=== PATIENT | female | born 1995 | race Caucasian/White ===

== ENCOUNTER 2020-06-22 21:10 | Emergency (ER) | payer OTHER ==
[~2020-06-22] VITALS: Ht 165.1 cm; Wt 60.2 kg
--- NOTE | 2020-06-22 22:12 | REPVR ---
PROCEDURE INFORMATION: Exam: US First Trimester, Transabdominal Exam date and time: 06/22/2020 10:04 PM Age: 25 years old Clinical indication: Lmp or gestational age (in weeks): 03/28/2020; Other: Vaginal bleeding; TECHNIQUE: Imaging protocol: Real-time transabdominal obstetrical ultrasound of the maternal pelvis and a first trimester , less than 14 weeks 0 days, with image documentation. COMPARISON: No relevant prior studies available. FINDINGS: Gestation: Single gestational sac demonstrated in the uterus. Single fetus demonstrated within the gestational sac with a crown-rump length measuring 7.2 cm. This corresponds to 13 weeks 2 days. Active motion demonstrated. Embryonic/ heart rate: heart rate is 155 bpm. Placenta: Unremarkable. No subchorionic bleed. Amniotic fluid: Amniotic fluid is normal for gestational age. BIOMETRY: Gestational age (AUA): Gestational age based on LMP of 03/28/2020 is 12 weeks 2 days. MATERNAL: Uterus: Unremarkable. Cervix: Unremarkable. Right adnexa: Unremarkable. Left adnexa: Unremarkable. Intraperitoneal space: No intraperitoneal free fluid. IMPRESSION: Unremarkable scan at 13 weeks 2 days using ultrasound measurements of the crown-rump length versus 12 weeks 2 days based on LMP. No abnormalities demonstrated. Electronically signed by: James Kenny On 06/22/2020 22:12:35 PM
[2020-06-22 22:44] LABS: BASO # 0.1 10^3/uL (0.0-0.2); BASO % 0.5 % (0.0-1.0); EOS # 0.2 10^3/uL (0.0-0.5); EOS % 1.7 % (0.0-3.0); HEMATOCRIT 36.4 % (36.0-47.0); HEMOGLOBIN 12.5 g/dl (12.0-15.5); LYMPH # 1.5 10^3/uL (1.5-5.0); LYMPH % 13.4 % (24.0-44.0); MEAN CORPUSCULAR HEMOGLOBIN 30.5 pg (27.0-33.0); MEAN CORPUSCULAR HGB CONC 34.3 g/dl (32.0-36.5); MEAN CORPUSCULAR VOLUME 88.8 fl (80.0-96.0); MONO # 0.6 10^3/uL (0.0-0.8); MONO % 5.3 % (0.0-5.0); NEUTROPHILS # 8.7 10^3/uL (1.5-8.5); NEUTROPHILS % 78.6 % (36.0-66.0); PLATELET COUNT, AUTOMATED 199 10^3/uL (150-450)
[2020-06-22 22:47] LABS: APPEARANCE, URINE CLEAR (CLEAR); BACTERIA, URINE AUTO 2+ (NEGATIVE); BILIRUBIN, URINE AUTO NEGATIVE (NEGATIVE); BLOOD, URINE BLOOD 3+ (NEGATIVE); COLOR, URINE STRAW (YELLOW); GLUCOSE, URINE (UA) AUTO NEGATIVE (NEGATIVE); KETONE, URINE AUTO NEGATIVE (NEGATIVE); LEUKOCYTE ESTERASE, URINE AUTO NEGATIVE (NEGATIVE); NITRITE, URINE AUTO NEGATIVE (NEGATIVE); PROTEIN, URINE AUTO NEGATIVE (NEGATIVE); RBC, URINE AUTO 47 /HPF (0-3); SPECIFIC GRAVITY URINE AUTO 1.002 (1.002-1.035); SQUAMOUS EPITHELIAL CELL UR AU 0 /HPF (0-6); UROBILINOGEN, URINE AUTO 0.2 mg/dL (0.0-2.0); WBC, URINE AUTO 7 /HPF (0-3)
[2020-06-23] MEDS ORDERED: RHOGAM 300 MCG (1500 IU) INJ (J2790) IM ONE (00:45)
[2020-06-23 02:09] VITALS: BP 109/65
== END 2020-06-23 02:23 | disposition home or self-care (01) ==
LOC: M ED 21:10
DX: O20.9 Hemorrhage in early pregnancy, unspecified (principal); Z3A.12 12 weeks gestation of pregnancy
CPT/HCPCS: 76801; 81001; 84702; 85025; 86850; 86900; 86901; 87086; 96372; 99284; J2790

== ENCOUNTER → 2020-08-02 | Outpatient (CLI) | payer OTHER ==
--- NOTE | 2020-08-08 11:10 | REP ---
OBSTETRIC SONOGRAPHY HISTORY: Supervision of for anatomy. FINDINGS: Scanning through the gravid uterus demonstrates a single living intrauterine gestation in a variable lie. The placenta is posterior and grade 0 without evidence of previa. Three vessel umbilical cord is seen. Amniotic fluid is subjectively normal. heart rate is recorded at 158 beats per minute. Closed cervical length is 3.4 cm measured transabdominally. There is a 1.5 cm corpus luteum cyst in the maternal right ovary. The inferior tip of the posterior placenta is measured 2.4 cm from the internal cervical os on transvaginal imaging. No anomaly is seen. The following anatomic structures are identified and felt to be unremarkable: cranium and intracranial anatomy, nuchal fold, face and profile, nose and lips, four chamber heart with left and right ventricular outflow tract views, diaphragm, left-sided stomach, right and left kidney, urinary bladder, spine, upper and lower extremities, three vessel cord. BIOMETRY CHART: BPD 4.1 cm 18 weeks 3 days Head circumference 16.1 cm 18 weeks 6 days Abdominal circumference 12.7 cm 18 weeks 2 days Femur length 2.7 cm 18 weeks 2 days Humeral length 2.8 cm 18 weeks 6 days AC/HC ratio 1.26 Normal Cephalic index 0.69 (0.70 to 0.86) Estimated weight 235 grams, 0 pounds 8 ounces, 60th percentile for 18 weeks 1 day. IMPRESSION: Single living intrauterine gestation at 18 weeks 4 days by todays composite criteria. Estimated date of delivery ([facility]) by todays sonography 12/30/2020. MTDD
== END ==
LOC: M WHC 13:57
PROVIDERS: ATTEND Advanced Practice Midwife
DX: Z34.02 Encounter for supervision of normal first pregnancy, second trimester (principal); Z3A.18 18 weeks gestation of pregnancy

== ENCOUNTER → 2020-10-06 | Outpatient (REF) | payer OTHER ==
[2020-10-06 16:21] LABS: HEMATOCRIT 33.6 % (36.0-47.0); HEMOGLOBIN 11.3 g/dl (12.0-15.5); MEAN CORPUSCULAR HEMOGLOBIN 30.8 pg (27.0-33.0); MEAN CORPUSCULAR HGB CONC 33.6 g/dl (32.0-36.5); MEAN CORPUSCULAR VOLUME 91.6 fl (80.0-96.0); PLATELET COUNT, AUTOMATED 202 10^3/uL (150-450); RED BLOOD COUNT 3.67 10^6/uL (4.00-5.40); WHITE BLOOD COUNT 11.7 10^3/uL (4.0-10.0)
== END ==
LOC: M PLALAB 13:02
PROVIDERS: ATTEND Advanced Practice Midwife
DX: Z3A.23 23 weeks gestation of pregnancy (principal)
CPT/HCPCS: 36415; 82950; 85027; 86850; 86870; 86900; 86901; J2790